=== PATIENT | male | born 1985 | race Two or more races ===

== ENCOUNTER 2023-11-09 11:04 | Emergency (ER) | payer MEDICAID ==
[~2023-11-09] VITALS: Ht 180.3 cm; Wt 129.5 kg
[2023-11-09] MEDS ORDERED: KETOROLAC TROMETH 60MG/2ML VIAL IM ONE (12:15)
[2023-11-09] MEDS ORDERED: methylPREDNISolone SOD SUCC 125 MG/2 ML VL IM ONE (12:15)
[2023-11-09] MEDS ORDERED: COLC1CAP PO (13:14)
[2023-11-09] MEDS ORDERED: INDO50SU RE (13:14)
[2023-11-09 13:15] VITALS: BP 156/96; PULSE 93; RESP 18; TEMP 98.7; O2SAT 97
== END 2023-11-09 13:17 | disposition home or self-care (01) ==
LOC: ER 11:04
DX: M10.9 Gout, unspecified (principal)
CPT/HCPCS: 96372; 99284; J1885; J2930